=== PATIENT | male | born 1945 | race Caucasian/White ===

== ENCOUNTER → 2021-12-19 09:24 | Outpatient (BNVA) | payer MEDICARE, SELFPAY | PROVIDERS: PCP Internal Medicine; Visit Provider Surgery Vascular Surgery | DX: I83.12 Varicose veins of left lower extremity with inflammation (principal) | CPT/HCPCS: 99202 ==

== ENCOUNTER 2022-02-19 07:45 | Outpatient (REF) | payer MEDICARE, SELFPAY ==
--- NOTE | ~2022-02-19 | US_ITS ---
EXAMINATION: US LOWER EXTREMITY VENOUS (REFLUX EXAM), BILATERAL CLINICAL INDICATION: This is a 76-year-old male with venous insufficiency and varicose veins. COMPARISON: None. TECHNIQUE: Color flow triplex imaging and compression Doppler was performed to evaluate both the deep and the superficial systems bilaterally. To evaluate the superficial system, the examination was performed in the upright position. Color-flow Doppler ultrasound and compression ultrasound were utilized. In addition, maneuvers were utilized to demonstrate reflux. FINDINGS: 1. DEEP VENOUS ULTRASOUND OF THE RIGHT LOWER EXTREMITY: Common Femoral Vein: Compressible, normal respiratory variation and augmented flow. Femoral vein: Compressible, normal color flow and augmentation. Popliteal Vein: Compressible, normal augmentation. Deep Reflux: There is no evidence of reflux in the deep system in either the common femoral vein or the popliteal vein. There is no evidence of a Shahid's cyst. 2. SUPERFICIAL ULTRASOUND WITH DOPPLER OF RIGHT LOWER EXTREMITY: GREAT SAPHENOUS VEIN: Saphenofemoral Junction: 1.0 cm. The reflux time is 2432 ms. Mid Thigh: 0.5 cm. The reflux time is 3520 ms. Above Knee: 0.5 cm. The reflux time is 3484 ms. Below Knee: 0.2 cm. There is no reflux. Mid Calf: 0.3 cm. There is no reflux. Ankle: 0.3 cm. There is no reflux. GSV REFLUX: There is reflux in the great saphenous vein beginning at the saphenofemoral junction and extending down to the knee. DUPLICATED GREAT SAPHENOUS VEIN: None SMALL SAPHENOUS VEIN: Proximal: 0.2 cm Distal: 0.2 cm SSV REFLUX: No evidence of reflux. VEIN OF GIACOMINI: None Imaged. PERFORATORS: There is a 0.2 cm mid calf clinical trial associate without reflux. VARICOSITIES: There are 0.5 cm varicose veins at the saphenofemoral junction without reflux. There are 0.4 cm varicose veins at the knee with greater than 3 seconds of reflux. 3. DEEP VENOUS ULTRASOUND OF THE LEFT LOWER EXTREMITY: Common Femoral Vein: Compressible, normal respiratory variation and augmented flow. Femoral Vein: Compressible, normal color flow and augmentation. Popliteal Vein: Compressible, normal augmentation. Deep Reflux: There is no evidence of reflux in the deep system in either the common femoral vein or the popliteal vein. There is a 2.3 x 0.9 x 1.2 cm complex cyst in the posterior calf. Clinical correlation is recommended. 4. SUPERFICIAL ULTRASOUND WITH DOPPLER OF LEFT LOWER EXTREMITY: GREAT SAPHENOUS VEIN: Saphenofemoral Junction: 1.1 cm. There is no reflux. Mid Thigh: 0.3 cm. The reflux time is 752 ms. Above Knee: 0.4 cm. There is no reflux. Below Knee: 0.4 cm. There is no reflux. Mid Calf: 0.2 cm. There is no reflux. Ankle: 0.3 cm. There is no reflux. GSV REFLUX: There is isolated reflux as noted. DUPLICATED GREAT SAPHENOUS VEIN: There is a 0.6 cm duplicated lateral great saphenous vein without reflux. SMALL SAPHENOUS VEIN: Proximal: 0.2 cm Distal: 0.2 cm SSV REFLUX: No evidence of reflux. VEIN OF GIACOMINI: None Imaged. PERFORATORS: There are 0.3 cm proximal calf perforators without reflux. VARICOSITIES: There are 0.5 cm proximal calf varicose veins without reflux. US/US venous duplex LE BI IMPRESSION: 1. There is a patent right great saphenous vein with reflux beginning at the saphenofemoral junction and extending down to the knee. 2. There is a patent right small saphenous vein without reflux. 3. There are varicose veins at the knee with greater than 3 seconds of reflux. 4. There is a patent left great saphenous vein without reflux at the junction. 5. There is a patent left small saphenous vein without reflux. 6. There is a left posterior calf complex cyst. Clinical correlation is recommended.
== END 2022-02-19 07:46 | disposition home or self-care (01) ==
LOC: HO.US 07:45
PROVIDERS: Visit Provider Surgery Vascular Surgery
DX: I83.12 Varicose veins of left lower extremity with inflammation (principal)
CPT/HCPCS: 93970

== ENCOUNTER → 2022-02-22 09:50 | Outpatient (BNVA) | payer MEDICARE, SELFPAY | PROVIDERS: PCP Internal Medicine; Visit Provider Surgery Vascular Surgery | DX: I83.11 Varicose veins of right lower extremity with inflammation (principal) | CPT/HCPCS: 99212 ==

== ENCOUNTER → 2022-04-27 08:27 | Outpatient (BNVA) | payer MEDICARE, SELFPAY | PROVIDERS: PCP Internal Medicine; Visit Provider Surgery Vascular Surgery | DX: I83.11 Varicose veins of right lower extremity with inflammation (principal) | CPT/HCPCS: 36482 ==

== ENCOUNTER 2022-05-01 10:42 | Outpatient (REF) | payer MEDICARE, SELFPAY ==
--- NOTE | ~2022-05-01 | US_ITS ---
EXAMINATION: US VENOUS ULTRASOUND WITH DOPPLER LOWER EXTREMITY, RIGHT CLINICAL INFORMATION: Right lower extremity pain. Status post right lower extremity greater saphenous vein closure using Venaseal. COMPARISON: None TECHNIQUE: Ultrasound of the deep veins is performed from the hip to the calf with compression sonography and color and pulse Doppler assessment. Spectral analysis with color-flow imaging is performed. FINDINGS: Findings demonstrate occlusion of the right greater saphenous vein. There is no evidence of extension of thrombus into the saphenofemoral junctions/common femoral vein. There is normal venous compression and respiratory variation and augmented flow. The visualized common femoral vein, superficial femoral vein, profunda femoral vein, popliteal vein, and the trifurcation region shows no evidence of deep venous thrombosis. There is no significant popliteal fossa cyst. US/US venous duplex LE RT IMPRESSION: No DVT demonstrated in the right lower extremity. Occlusion of the right greater saphenous vein, consistent with reported history of ablation. No evidence of extension of thrombus into the saphenofemoral junctions/common femoral vein.
== END 2022-05-01 10:43 | disposition home or self-care (01) ==
LOC: HO.US 10:42
PROVIDERS: Visit Provider Surgery Vascular Surgery
DX: M79.604 Pain in right leg (principal)
CPT/HCPCS: 93971

== ENCOUNTER → 2022-05-10 08:42 | Outpatient (BNVA) | payer MEDICARE, SELFPAY | PROVIDERS: PCP Internal Medicine; Visit Provider Surgery Vascular Surgery | DX: I83.11 Varicose veins of right lower extremity with inflammation (principal); R22.42 Localized swelling, mass and lump, left lower limb | CPT/HCPCS: 99212 ==

== ENCOUNTER → 2022-06-01 10:26 | Outpatient (BNVA) | payer MEDICARE, SELFPAY | PROVIDERS: PCP Internal Medicine; Visit Provider Surgery Vascular Surgery | DX: R22.42 Localized swelling, mass and lump, left lower limb (principal) | CPT/HCPCS: 27619 ==

== ENCOUNTER → 2022-06-11 10:28 | Outpatient (BNVA) | payer MEDICARE, SELFPAY | PROVIDERS: PCP Internal Medicine; Visit Provider Surgery Vascular Surgery | DX: R22.42 Localized swelling, mass and lump, left lower limb (principal) | CPT/HCPCS: 99212 ==

== ENCOUNTER → 2022-12-25 08:55 | Outpatient (BNVA) | payer MEDICARE, SELFPAY | PROVIDERS: PCP Internal Medicine; Visit Provider Surgery Vascular Surgery | DX: R22.42 Localized swelling, mass and lump, left lower limb (principal); I73.9 Peripheral vascular disease, unspecified | CPT/HCPCS: 99212 ==

== ENCOUNTER 2023-01-09 12:34 | Outpatient (REF) | payer MEDICARE, SELFPAY ==
--- NOTE | ~2023-01-09 | US_ITS ---
EXAMINATION: Noninvasive assessment of the bilateral lower extremities with ARTERIAL DUPLEX and ANKLE BRACHIAL INDICES (ABIs). ULTRASOUND AORTA CLINICAL INFORMATION: Peripheral vascular disease TECHNIQUE: Duplex Doppler techniques with waveform analysis and measurement of velocities in the bilateral common femoral, profunda femoris, superficial femoral, popliteal and tibial arteries were performed. Additionally, ankle pulse volume recordings, ankle pressure measurements and ankle brachial indices were obtained of the lower extremity arterial system bilaterally. The study was performed only at rest. Additional duplex Doppler with waveform analysis and velocities performed of the abdominal aorta and bilateral iliac arteries COMPARISON: None FINDINGS: DIRECT DUPLEX DOPPLER FINDINGS: RIGHT LEG: Common femoral artery: 61 cm/s, phasicity: Monophasic. Extensive heavily calcified plaque is seen with visual moderate to severe stenosis Profunda femoris artery: 86 cm/s, phasicity: Monophasic Superficial femoral artery (proximal): 59 cm/s, phasicity: Monophasic Superficial femoral artery (mid): 43 cm/s, phasicity: Monophasic. Calcified plaque Superficial femoral artery (distal): 49 cm/s, phasicity: Monophasic Popliteal artery: 39 cm/s, phasicity: Monophasic Posterior tibial artery: 39 cm/s, phasicity: Monophasic Peroneal artery: 28 cm/s, phasicity: Monophasic LEFT LEG: Common femoral artery: 314 cm/s, phasicity: Biphasic. Extensive heavily calcified plaque with severe stenosis Profunda femoris artery: 44 cm/s, phasicity: Biphasic Superficial femoral artery (proximal): 83 cm/s, phasicity: Biphasic Superficial femoral artery (mid): 89 cm/s, phasicity: Biphasic Superficial femoral artery (distal): 74 cm/s, phasicity: Biphasic Popliteal artery: 82 cm/s, phasicity: Biphasic Posterior tibial artery: 70 cm/s, phasicity: Biphasic Peroneal artery: 53 cm/s, phasicity: Biphasic AORTA: Diffuse calcified plaque. Maximum peak systolic velocity in the distal abdominal aorta measures 375 cm/s, biphasic. Patent tortuous bilateral common iliac arteries. Maximum peak systolic velocity in the right common iliac artery measures 95 cm/s, monophasic consistent with moderate stenosis. Maximum peak systolic velocity in the left common iliac artery measures 215 cm/s, biphasic consistent with moderate stenosis ANKLE-BRACHIAL INDEX: Right: 0.65? Left: 0.98 ANKLE PRESSURES: Right: PT 75, DP 86 Left: PT?130, DP?126 ANKLE PVR WAVEFORMS: Right: Abnormal Left: Abnormal US/US arterial duplex LE BI IMPRESSION: Right leg: Moderately decreased ankle brachial index. Heavily calcified plaque is seen in the right common femoral artery with the visual appearance of moderate to severe stenosis. Monophasic flow seen throughout the right common iliac artery with elevated velocity consistent with a moderate stenosis. Left leg: Normal ankle brachial index. Heavily calcified plaque is seen in the left common femoral artery with elevated velocity and visual appearance of severe stenosis. Patent biphasic flow throughout the remaining left lower extremity. Elevated velocity also seen in the left common iliac artery consistent with moderate stenosis. Aorta: Elevated velocity in the distal abdominal aorta consistent with a moderate stenosis. ALEXEY Reference: - >1.4 = calcified vessels - 0.9 - 1.4 = normal - no significant arterial disease - 0.7 - 0.89 = mild peripheral arterial disease - 0.51 - 0.69 = moderate peripheral arterial disease - ? 0.50 = severe peripheral arterial disease - < .30 = critical arterial disease
== END 2023-01-09 12:35 | disposition home or self-care (01) ==
LOC: HO.US 12:34
PROVIDERS: PCP Internal Medicine; Visit Provider Surgery Vascular Surgery
DX: I73.9 Peripheral vascular disease, unspecified (principal)
CPT/HCPCS: 93923; 93925

== ENCOUNTER 2023-01-29 08:45 | Outpatient (AMB) | payer MEDICARE, SELFPAY ==
[2023-01-29 09:04] VITALS: BMI 33.8
--- NOTE | 2023-01-29 09:04 | MHC.OFFVIS ---
Intake Vital Signs 01/29/23 09:04 Height 5 ft 7.5 in Weight 219 lb BMI 33.8 Intake Visit Reasons: Arterial US follow up 01/09/23 Intake Note: follow up Arterial US 01/09/23 w/ Left calf mass in the muscle that has grown a bit since removed and is sensitive to the touch and right LE cramping w/ 10 mins of ambulation. Pt states he was able to bike 12 miles without cramping. Accompanied by: Self / Same As Patient Allergies CHRIS Inhibitors Adverse Reaction (Unknown, Verified 01/29/23 09:09) Unknown Penicillins Adverse Reaction (Unknown, Verified 01/29/23 09:09) Unknown Sulfa (Sulfonamide Antibiotics) Adverse Reaction (Unknown, Verified 01/29/23 09:09) Unknown HPI Arterial US follow up 01/09/23 HPI Details Very pleasant 77-year-old gentleman presents for follow-up regarding peripheral vascular disease. In addition he does have this left posterior calf mass that has reoccurred. At the current time he is asymptomatic from both. Of in terms of the mass it occasionally sensitive but at the current time causing him no problems. In terms of his claudication he can actually walk a quarter of a mi with no problem. He has been able to ride his bike several miles with no significant difficulty. He enjoyed his last vacation at [facility] a few weeks ago and was able to bike with no difficulty. He now presents for follow-up. [facility] Medical History Atherosclerosis of aorta CAD (coronary artery disease) Chronic kidney disease, stage 3 unspecified HTN (hypertension) Myocardial infarction Peripheral vascular disease, unspecified Strain of other muscle(s) and tendon(s) of posterior muscle group at lower leg level, left leg, initial encounter Surgical History Status post ablation of incompetent vein using laser (04/27/22) Social History Alcohol intake: never Patient Tobacco Use Status: Former Tobacco user Tobacco use type: Cigarette Review of Systems Const All systems reviewed & are unremarkable except as noted in HPI and below Reports no additional complaints ENT Reports Normal hearing present Card Denies chest pain, Denies chest pain at rest, Denies chest pain with activity and Denies pedal edema Resp Denies cough GI Denies abdominal pain Musc Denies abnormal gait, Denies muscle cramps and Denies radiating pain into limb Skin/Breast Denies skin ulcer and Denies wounds Neuro Reports Normal hearing present and Denies abnormal gait Psych Reports no additional complaints Physical Exam Vital Signs: BMI result Body Mass Index 33.8 Const General: cooperative, healthy appearing and comfortable Orientation/consciousness: oriented to person, oriented to place and oriented to time HEENT Head: Yes normal to inspection Neck Neck: Yes normal visual inspection Carotids: no bruits Chest Chest palpation & inspection: normal inspection of the chest Resp Effort & Inspection: normal respiratory effort and able to speak in complete sentences Auscultation: clear to auscultation bilaterally, no crackles, no rales, no rhonchi and no wheezes Cardio Other: Bilateral DP signal Rate: regular rate Rhythm: regular rhythm Heart sounds: S1 normal heart sound present and S2 normal heart sound present Bruits: no carotid bruits Peripheral pulses: Peripheral pulses 2+ throughout GI Inspection: Yes normal to inspection Skin Wounds: no wounds Hair: normal Neuro General: oriented to person, oriented to place and oriented to time Cranial nerves: Yes CN's II-XII intact bilaterally and Yes Normal hearing present Cognition (Neuro): normal cognition Motor exam (neuro): 5/5 motor strength present throughout Extrem Other: venous exam: No significant superficial varicosities or spider telangiectasias, minimal edema General: No clubbing, No cyanosis and No edema Psych Appearance: grossly normal Mental Status: mental status grossly normal Speech and movement: Normal speech and movement present Results Reviewed Results Reviewed: Noninvasive arterial testing dated 01/09/2023 demonstrates ALEXEY on the right of 0.65 and on the left of 0.98. Written report and images were reviewed. Assessment & Plan Assessment & Plan (1) PAD (peripheral artery disease): Code(s): I73.9 - Peripheral vascular disease, unspecified Plan: In short patient has stable claudication. I did review the pathophysiology of peripheral vascular disease with the patient. In addition we did discuss routine conservative measures including a healthy diet and the importance of exercise and ambulation. We did discuss risk factor modification. The patient will continue to to follow-up with surveillance follow-up in approximately 1 year. Thank you for allowing us to participate in this patient's care. If there are any questions or concerns please do not hesitate to contact us. Orders: Orders US arterial duplex LE BI 364 Days I73.9 - Peripheral vascular disease, unspecified Coding Level of Care Code Est Pt Level 4 (08761) Diagnoses PAD (peripheral artery disease) I73.9
== END 2023-01-29 09:24 | disposition home or self-care (01) ==
LOC: HO.HVS 08:45
PROVIDERS: PCP Internal Medicine; Visit Provider Surgery Vascular Surgery
DX: I73.9 Peripheral vascular disease, unspecified (principal)
CPT/HCPCS: 99213

== ENCOUNTER → 2023-01-29 08:45 | Outpatient (BNVA) | payer MEDICARE, SELFPAY | PROVIDERS: PCP Internal Medicine; Visit Provider Surgery Vascular Surgery | DX: I73.9 Peripheral vascular disease, unspecified (principal) | CPT/HCPCS: 99212 ==

== ENCOUNTER 2024-01-21 08:28 | Outpatient (REF) | payer MEDICARE, SELFPAY ==
--- NOTE | ~2024-01-21 | US_ITS ---
EXAMINATION: US RETROPERITONEAL LIMITED (AORTA) NONINVASIVE ASSESSMENT OF THE ARTERIES OF BOTH LOWER EXTREMITIES INCLUDING PVR EXAM AND BILATERAL LOWER EXTREMITY DUPLEX CLINICAL INFORMATION: PVD. COMPARISON: Noninvasive vascular studies 01/09/2023 TECHNIQUE: Styles-scale, color Doppler and spectral Doppler evaluation of the abdominal aorta. Ankle pulse volume recordings, ankle pressure measurements and ankle brachial indices were obtained of the lower extremity arterial system bilaterally in addition to duplex Doppler techniques with wave form analysis and measurement of velocities in the common femoral, profunda femoral, superficial femoral, popliteal, tibial and peroneal arteries. The study was performed only at rest. FINDINGS: Atherosclerotic plaque in the abdominal aorta. The measurements of the aorta in maximum AP and transverse dimensions respectively are as follows: Proximal: 3.3 cm. Mid: 2.5 cm. Distal: 2.0 cm. PSV: 105 cm/s. The measurements of the common iliac arteries in maximum AP and TRV dimensions are as follows: Right Common Iliac Artery: 1.4 cm. Left Common Iliac Artery: 1.3 cm. RIGHT LEG 1. Right Ankle-Brachial Index: 0.62 (higher of the DP/PT) >0.97-1.25 = normal - no significant arterial disease 0.75-0.96 = mild peripheral arterial disease 0.5-0.74 = moderate peripheral arterial disease <0.50 = severe peripheral arterial disease <0.30 = critical arterial disease 2. Segmental Pressures (mmHg): Brachial: 128 Ankle: PT 90, DP 83 3. PVR Waveforms: Ankle: Biphasic 4. Direct Duplex: Common femoral artery: 75 cm/s, monophasic Profunda femoris artery: 72 cm/s, monophasic Superficial femoral artery (proximal): 27 cm/s, biphasic Superficial femoral artery (mid): 40 cm/s, monophasic Superficial femoral artery (distal): 32 cm/s, monophasic Popliteal artery: 20 cm/s, monophasic Mid posterior tibial artery: 17 cm/s, monophasic LEFT LE. Left Ankle-Brachial Index: 0.94 (higher of the DP/PT) >0.97-1.25 = normal - no significant arterial disease 0.75-0.96 = mild peripheral arterial disease 0.5-0.74 = moderate peripheral arterial disease <0.50 = severe peripheral arterial disease <0.30 = critical arterial disease 2. Segmental Pressures: Brachial: 146 Ankle: PT 137, DP 120 3. PVR Waveforms: Ankle: Biphasic 4. Direct Duplex: Common femoral artery: 219 cm/s, biphasic Profunda femoris artery: 32 cm/s, biphasic Superficial femoral artery (proximal): 50 cm/s, biphasic Superficial femoral artery (mid): 43 cm/s, biphasic Superficial femoral artery (distal): 43 cm/s, biphasic Popliteal artery: 35 cm/s, biphasic Mid posterior tibial artery: 37 cm/s, biphasic US/US arterial duplex BI w/ ALEXEY IMPRESSION: 1. Left ankle-brachial index of 0.94 consistent with mild peripheral arterial disease. Previously 0.95. 2. Elevated velocity in the left common femoral artery consistent with a moderate stenosis. 3. Right ankle-brachial index of 0.62 consistent with moderate peripheral arterial disease. Previously 0.65. 4. Decreased velocities throughout the left lower extremity arterial system consistent with inflow disease.
== END 2024-01-21 08:29 | disposition home or self-care (01) ==
LOC: HO.US 08:28
PROVIDERS: PCP Internal Medicine; Visit Provider Surgery Vascular Surgery
DX: I73.9 Peripheral vascular disease, unspecified (principal)
CPT/HCPCS: 76706; 93922; 93925

== ENCOUNTER 2024-02-27 10:07 | Outpatient (AMB) | payer MEDICARE, SELFPAY ==
--- NOTE | 2024-02-27 10:08 | MHC.OFFVIS ---
Intake Visit Reasons: 1yr follow up s/p ART US 01/21/24 Intake Note: Patient presents for follow up 01/21/24 arterial US. Patient has no complaints. Accompanied by: Self / Same As Patient Allergies CHRIS Inhibitors Adverse Reaction (Unknown, Verified 02/27/24 10:10) Unknown Penicillins Adverse Reaction (Unknown, Verified 02/27/24 10:10) Unknown Sulfa (Sulfonamide Antibiotics) Adverse Reaction (Unknown, Verified 02/27/24 10:10) Unknown HPI HPI 1yr follow up s/p ART 01/21/24: Details: Very pleasant 78-year-old gentleman presents for annual surveillance regarding peripheral vascular disease. He had a previous left posterior calf mass which appears to have resolved and is not causing any problems. Can walk about a mi with no difficulty. He also is an avid bike rider. He typically goes to [facility] for about a month in March in a camper. And continues to remain quite active. He now presents for routine arterial surveillance. [facility] Medical History Chronic kidney disease, stage 3 unspecified Atherosclerosis of aorta Peripheral vascular disease, unspecified Strain of other muscle(s) and tendon(s) of posterior muscle group at lower leg level, left leg, initial encounter Myocardial infarction HTN (hypertension) CAD (coronary artery disease) Surgical History Status post ablation of incompetent vein using laser (04/27/22) Social History Alcohol intake: never Patient Tobacco Use Status: Former Tobacco user Tobacco use type: Cigarette Review of Systems Const All systems reviewed & are unremarkable except as noted in HPI and below Reports no additional complaints ENT Reports Normal hearing present Card Denies chest pain, Denies chest pain at rest, Denies chest pain with activity and Denies pedal edema Resp Denies cough GI Denies abdominal pain Musc Denies abnormal gait, Denies muscle cramps and Denies radiating pain into limb Skin/Breast Denies skin ulcer and Denies wounds Neuro Reports Normal hearing present and Denies abnormal gait Psych Reports no additional complaints Physical Exam Const General: cooperative, healthy appearing and comfortable Orientation/consciousness: oriented to person, oriented to place and oriented to time HEENT Head: Yes normal to inspection Neck Neck: Yes normal visual inspection Carotids: no bruits Chest Chest palpation & inspection: normal inspection of the chest Resp Effort & Inspection: normal respiratory effort and able to speak in complete sentences Auscultation: clear to auscultation bilaterally, no crackles, no rales, no rhonchi and no wheezes Cardio Other: Bilateral DP signals Rate: regular rate Rhythm: regular rhythm Heart sounds: S1 normal heart sound present and S2 normal heart sound present Bruits: no carotid bruits GI Inspection: Yes normal to inspection Skin Wounds: no wounds Hair: normal Neuro General: oriented to person, oriented to place and oriented to time Cranial nerves: Yes CN's II-XII intact bilaterally and Yes Normal hearing present Cognition (Neuro): normal cognition Motor exam (neuro): 5/5 motor strength present throughout Extrem Other: venous exam: No significant superficial varicosities or spider telangiectasias, minimal edema General: No clubbing, No cyanosis and No edema Psych Appearance: grossly normal Mental Status: mental status grossly normal Speech and movement: Normal speech and movement present Results Reviewed Results Reviewed: Noninvasive testing dated 01/21/2024 demonstrates ALEXEY on the right of 0.62 and on the left of 0.94. Assessment & Plan Assessment & Plan (1) PAD (peripheral artery disease): Code(s): I73.9 - Peripheral vascular disease, unspecified Category: Medical Plan: In short patient has stable claudication. I did review the pathophysiology of peripheral vascular disease with the patient. In addition we did discuss routine conservative measures including a healthy diet and the importance of exercise and ambulation. We did discuss risk factor modification. The patient will continue to to follow-up with surveillance follow-up in approximately 1 year. Thank you for allowing us to participate in this patient's care. If there are any questions or concerns please do not hesitate to contact us. Orders: Orders US arterial duplex LE BI 1 Year I73.9 - Peripheral vascular disease, unspecified Coding Level of Care Code Est Pt Level 4 (16015) Diagnoses PAD (peripheral artery disease) I73.9
== END 2024-02-27 10:39 | disposition home or self-care (01) ==
PROVIDERS: PCP Internal Medicine; Visit Provider Surgery Vascular Surgery
DX: I73.9 Peripheral vascular disease, unspecified (principal)
CPT/HCPCS: 99214

== ENCOUNTER → 2024-02-27 10:07 | Outpatient (BNVA) | payer MEDICARE, SELFPAY | PROVIDERS: PCP Internal Medicine; Visit Provider Surgery Vascular Surgery | DX: I73.9 Peripheral vascular disease, unspecified (principal) | CPT/HCPCS: 99212 ==

== ENCOUNTER 2025-02-16 09:24 | Outpatient (REF) | payer MEDICARE, SELFPAY ==
--- NOTE | ~2025-02-16 | US_ITS ---
EXAMINATION: Noninvasive assessment of the bilateral lower extremities with ARTERIAL DUPLEX, ANKLE BRACHIAL INDICES (ABIs), and PULSE VOLUME RECORDINGS (PVRs). CLINICAL INFORMATION: Smoking. Peripheral vascular disease. TECHNIQUE: Duplex Doppler techniques with waveform analysis and measurement of velocities in the bilateral common femoral, profunda femoris, superficial femoral, popliteal and tibial arteries were performed. Additionally, ankle pulse volume recordings, ankle pressure measurements and ankle brachial indices were obtained of the lower extremity arterial system bilaterally. The study was performed only at rest. COMPARISON: January 21, 2024. FINDINGS: Irregularly-shaped mixed plaques throughout the interrogated arteries, pronounced in the common femoral arteries. DIRECT DUPLEX DOPPLER FINDINGS: RIGHT LEG: Common femoral artery: 57 cm/s, phasicity: Monophasic. Profunda femoris artery: 116 cm/s, phasicity: Monophasic. Superficial femoral artery (proximal): 41 cm/s, phasicity: Monophasic. Superficial femoral artery (mid): 52 cm/s, phasicity: Monophasic. Superficial femoral artery (distal): 22 cm/s, phasicity: Monophasic. Popliteal artery: 25 cm/s, phasicity: Biphasic. Posterior tibial artery: 23 cm/s, phasicity: Monophasic. Peroneal artery: 16 cm/s, phasicity: Monophasic. Anterior tibial artery: 17 cm/s, phasicity: Biphasic. Dorsalis pedis artery: 5 cm/s, phasicity:Monophasic. LEFT LEG: Common femoral artery: 226 cm/s, phasicity: Biphasic. Spectral broadening. Profunda femoris artery: 42 cm/s, phasicity: Monophasic. Superficial femoral artery (proximal): 82 cm/s, phasicity: Biphasic. Superficial femoral artery (mid): 47 cm/s, phasicity: Biphasic. Superficial femoral artery (distal): 46 cm/s, phasicity: Biphasic. Popliteal artery: 66 cm/s, phasicity: Biphasic. Posterior tibial artery: 39 cm/s, phasicity: Biphasic. Peroneal artery: 28 cm/s, phasicity: Biphasic Anterior tibial artery: 29 cm/s, phasicity: Biphasic. Dorsalis pedis artery: 63 cm/s, phasicity: Biphasic BRACHIAL PRESSURES: Right: 154 Left: 171 ANKLE PRESSURES: Right: PT 114, DP 91 Left: PT 133, DP 123 ANKLE-BRACHIAL INDEX: Right: 0.67 Left: 0.78 ANKLE PVR WAVEFORMS: Right: Abnormal Left: Abnormal US/US arterial duplex BI w/ ALEXEY IMPRESSION: Right leg: Severe inflow disease throughout the interrogated vessels. Left leg: Moderate to severe inflow disease throughout the interrogated vessels. ALEXEY Reference: - >1.4 = calcified vessels - 0.9 - 1.4 = normal - no significant arterial disease - 0.7 - 0.89 = mild peripheral arterial disease - 0.51 - 0.69 = moderate peripheral arterial disease - 0.50 = severe peripheral arterial disease - < .30 = critical arterial disease Electronically signed by: Abdelrahman Falcon MD 02/16/2025 10:45 AM EDT
--- OUTSIDE RECORDS SUMMARY | 2025-02-16 09:51 | XMS_ITS | Clinical Summary ---
Author Organization [address] [place] [address] [place] [phone] Phone Care Team Providers Care Director Of Communications Name Role Phone Shekhar Rice MD Primary Care Provider [phone] Allergies Active Allergy Reactions Criticality Noted Date Comments Penicillins 02/20/2023 Other Reaction(s): Hives/Urticaria Sulfa (Sulfonamide Antibiotics) 02/20/2023 Other Reaction(s): Hives/Urticaria Medications ASCORBIC ACID, VITAMIN C, ORAL Take 1 Tablet by mouth daily. Zinc Active aspirin 81 mg EC tablet Take 1 tablet (81 mg total) by mouth 1 (one) time each day. Active metoprolol succinate (TOPROL-XL) 25 mg 24 hr tablet Take 1 tablet (25 mg total) by mouth 1 (one) time each day. Active chlorthalidone (HYGROTON) 25 mg tablet Take 1 tablet (25 mg total) by mouth 1 (one) time each day. Active amLODIPine (NORVASC) 5 mg tablet Take 1 tablet (5 mg total) by mouth 1 (one) time each day. Active omeprazole (PriLOSEC) [address] capsule Take 1 capsule (20 mg total) by mouth 1 (one) time each day. Active Active Problems Problem Noted Date Diagnosed Date Hyperlipidemia 02/20/2023 Overview (07/06/2024): Last Assessment & Plan: Patient has hyperlipidemia states he has had side effects on 3 different statins. We did start him on Zetia 10 mg a day has been given a lab slip to check his cholesterol in a month dietary restrictions have also been discussed Arteriosclerosis of aorta ([facility] V24) 02/19/20 23 COLD (chronic obstructive amisha ng disease) (CMS/HCC V24, CMS/[facility] V28) 02/18/2023 Heart murmur 02/18/2023 Overview (07/06/2024): Last Assessment & Plan: Patient with aortic insufficiency. Will plan on repeating echocardiogram in 1 year to assess for any evidence of heart failure. Patient has been told that the symptoms that could develop from this are progressive dyspnea or edema Insufficiency, arterial, peripheral ([facility] V24 ) 02/18/2023 Overview (07/06/2024): Last Assessment & Plan: Patient has had some claudication symptoms mainly of the right leg has been followed by vascular surgery is also had venous insufficiency surgery which I suspect is a vein stripping on the right side his main claudication is on the right. Left upper quadrant abdominal swelling, mass and lump 02/18/2023 Old [place] (myocardial infarction) 02/18/2023 Overview (07/06/2024): Last Assessment & Plan: Remote history of episodic coronary disease status post angioplasty right coronary artery over 20 years ago with no recurrent anginal symptoms. Large infarct identified on perfusion studies. Encounters Date Type Department Care Team Description 12/11/2024 Telephone [facility] - [facility] [address] [place] [address] Mark Anthony Aguilera MD from Last 3 Months Medical History Medical History Date Comments Chronic kidney disease, stag e 3 ([facility] V24, [facility] V28) DX:Chronic kidney disease, s tage 3 ([facility]) Muscle strain of left lower leg DX:Muscle strain of left lower leg Social History Tobacco Use Types Packs/Day Years Used Date Smoking Tobacco: Former Cigarettes Q uit: 07/22/2011 Smokeless Tobacco: Never Alcohol Use Standard Drinks/Week Comments Not Currently 0 (1 standard drink = 0.6 oz pur e alcohol) Sex and Gender Information Value Date Recorded Sex Assigned at Not on file Legal Sex Male 9:09 PM EST Gender Identity Not on file Sexual Orientation Not on file Obstetrics History Last Filed Vital Signs Vital Sign Reading Time Taken Comments Blood Pressure 128/58 11/27/2023 11:04 AM EDT Sitting R Arm Pulse 67 11/27/2023 11:04 AM EDT Temperature - - Respiratory Rate - - Oxygen Saturation - - Inhaled Oxygen Concentration - - Weight 98.2 kg (216 lb 9.6 oz) 11/27/2023 11:04 AM EDT Height 174 cm (5' 8.5 ) 11/27/2023 11:0 4 AM EDT Body Mass Index 32.45 11/27/2023 11:04 AM EDT Plan of Treatment Upcoming Encounters Date Type Department Care Team (Late st Contact Info) Description 03/02/2025 8:00 AM EDT Ancillary Procedure [facility] - [address] [place] [address] Health Maintenance Due Date Last Done Comments COVID-19 Vaccine (#1) 1950 DTaP,Tdap,and Td Vaccines (1 - Tdap) 10/15/1963 Pneumococcal Vaccine: 50+ Ye ars (1 of 2 - PCV) 10/15/1963 Zoster Vaccines (1 of 2) 10/15/1963 RSV Immunization Adult Patie nts (1 - 1-dose 75+ series) 10/15/2019 Cholesterol Screening (Lipid Panel) 08/16/2023 Falls Risk Assessment 08/16/2023 Medicare Annual Wellness Visit 08/16/2023 Social Influencers of Health Screening 08/16/2023 Depression Screening 07/22/2024 Influenza Vaccine (#1) 2025 HIB Vaccines Aged Out No longer eligi ble based on patient's age to complete this topic HPV Vaccines Aged Out No longer eligi ble based on patient's age to complete this topic Hepatitis A Vaccines Aged Out No long er eligible based on patient's age to complete this topic Hepatitis B Vaccines Aged Out No long er eligible based on patient's age to complete this topic IPV Vaccines Aged Out No longer eligi ble based on patient's age to complete this topic MMR Vaccines Aged Out No longer eligi ble based on patient's age to complete this topic Meningococcal ACWY Vaccine Aged Out N o longer eligible based on patient's age to complete this topic Meningococcal B Vaccine Aged Out No l onger eligible based on patient's age to complete this topic RSV Immunization Patients Un delores 20 months Aged Out No longer eligible b ased on patient's age to complete this topic Varicella Vaccines Aged Out No longer eligible based on patient's age to complete this topic [place] [id number] [employer] Care Teams Director Of Communications Relationship Specialty Start Date End Date Shekhar Rice MD [address] [facility] [address] [place] PCP - General 12/11/22
== END 2025-02-16 09:25 | disposition home or self-care (01) ==
LOC: HO.US 09:24
PROVIDERS: PCP Internal Medicine; Visit Provider Surgery Vascular Surgery
DX: I73.9 Peripheral vascular disease, unspecified (principal); Z87.891 Personal history of nicotine dependence
CPT/HCPCS: 93922; 93925

== ENCOUNTER → 2025-02-16 09:26 | Outpatient (BNV) | payer MEDICARE, SELFPAY | PROVIDERS: PCP Internal Medicine; Visit Provider Radiology Diagnostic Radiology | DX: I73.9 Peripheral vascular disease, unspecified (principal) | CPT/HCPCS: 93922; 93925 ==

== ENCOUNTER 2025-04-01 09:40 | Outpatient (AMB) | payer MEDICARE, SELFPAY ==
--- NOTE | 2025-04-01 09:46 | MHC.OFFVIS ---
Intake Visit Reasons: 1 yr follow up Arterial US 02/16/25 Intake Note: Patient presents for 1 year follow up arterial US . No complaints. Accompanied by: Self / Same As Patient Allergies CHRIS Inhibitors Adverse Reaction (Unknown, Verified 04/01/25 09:48) Unknown Penicillins Adverse Reaction (Unknown, Verified 04/01/25 09:48) Unknown Sulfa (Sulfonamide Antibiotics) Adverse Reaction (Unknown, Verified 04/01/25 09:48) Unknown HPI HPI 1 yr follow up Arterial US 02/16/25: Details: The patient is an 79-year-old male presenting with an annual arterial surveillance follow-up. He has a history of peripheral arterial disease with satisfactory arterial circulation measurements of .67 on the right and .78 on the left. He reports being able to walk long distances without difficulty, including a recent seven-mile walk during a trip to [place]. The patient has a history of hyperlipidemia but is not on statins due to muscle aches experienced previously. He manages his cholesterol through dietary changes, and his levels are borderline. Of note he is being maintained on a baby aspirin and now presents for vascular follow-up. ON LICENSE OF [facility] Medical History Chronic kidney disease, stage 3 unspecified Atherosclerosis of aorta Peripheral vascular disease, unspecified Strain of other muscle(s) and tendon(s) of posterior muscle group at lower leg level, left leg, initial encounter Myocardial infarction HTN (hypertension) CAD (coronary artery disease) Surgical History Status post ablation of incompetent vein using laser (04/27/22) Social History Alcohol intake: never Patient Tobacco Use Status: Former Tobacco user Tobacco use type: Cigarette Review of Systems Const All systems reviewed & are unremarkable except as noted in HPI and below Reports no additional complaints ENT Reports Normal hearing present Card Denies chest pain, Denies chest pain at rest, Denies chest pain with activity and Denies pedal edema Resp Denies cough GI Denies abdominal pain Musc Denies abnormal gait, Denies muscle cramps and Denies radiating pain into limb Skin/Breast Denies skin ulcer and Denies wounds Neuro Reports Normal hearing present and Denies abnormal gait Psych Reports no additional complaints Physical Exam Const General: cooperative, healthy appearing and comfortable Orientation/consciousness: oriented to person, oriented to place and oriented to time HEENT Head: Yes normal to inspection Neck Neck: Yes normal visual inspection Carotids: no bruits Chest Chest palpation & inspection: normal inspection of the chest Resp Effort & Inspection: normal respiratory effort and able to speak in complete sentences Auscultation: clear to auscultation bilaterally, no crackles, no rales, no rhonchi and no wheezes Cardio Other: Bilateral DP signals Rate: regular rate Rhythm: regular rhythm Heart sounds: S1 normal heart sound present and S2 normal heart sound present Bruits: no carotid bruits Peripheral pulses: Peripheral pulses 2+ throughout GI Inspection: Yes normal to inspection Skin Wounds: no wounds Hair: normal Neuro General: oriented to person, oriented to place and oriented to time Cranial nerves: Yes CN's II-XII intact bilaterally and Yes Normal hearing present Cognition (Neuro): normal cognition Motor exam (neuro): 5/5 motor strength present throughout Extrem Other: venous exam: No significant superficial varicosities or spider telangiectasias, minimal edema General: No clubbing, No cyanosis and No edema Psych Appearance: grossly normal Mental Status: mental status grossly normal Speech and movement: Normal speech and movement present Results Reviewed Results Reviewed: Noninvasive testing dated 02/16/2025 demonstrates ALEXEY on the right of 0.67 and on the left of 0.78. Written report and images were reviewed Assessment & Plan Assessment & Plan (1) PAD (peripheral artery disease): Code(s): I73.9 - Peripheral vascular disease, unspecified Category: Medical Plan: In short patient has stable claudication. I did review the pathophysiology of peripheral vascular disease with the patient. In addition we did discuss routine conservative measures including a healthy diet and the importance of exercise and ambulation. We did discuss risk factor modification. The patient will continue to to follow-up with surveillance follow-up in approximately 1 year. Thank you for allowing us to participate in this patient's care. If there are any questions or concerns please do not hesitate to contact us. Plan Patient was informed and verbally consented to the use of an ambient scribe for clinic note documentation during this visit. Coding Level of Care Code Est Pt Level 4 (60878) Complex EM visit Add On G2211 Diagnoses PAD (peripheral artery disease) I73.9
--- OUTSIDE RECORDS SUMMARY | 2025-04-01 11:21 | XMS_ITS | Clinical Summary ---
Author Organization [address] [place] [address] [place] [phone] Phone Care Team Providers Care Shrimp Cleaner Name Role Phone Shekhar Rice MD Primary Care Provider [phone] Allergies Active Allergy Reactions Criticality Noted Date [...] have also been discussed Arteriosclerosis of aorta ([facility] V24) 02/19/20 COLD (chronic obstructive amisha ng disease) ([facility] V24, [facility] V28) 02/18/2023 Heart murmur 02/18/2023 Overview (07/06/2024): Last Assessment & Plan: Patient with aortic insufficiency. Will plan on repeating echocardiogram in 1 year to assess for any evidence of heart failure. Patient has been told that the symptoms that could develop from this are progressive dyspnea or edema Insufficiency, arterial, peripheral ([facility] V24 ) 02/18/2023 Overview (07/06/2024): Last Assessment & Plan: Patient has had some claudication symptoms mainly of the right leg has been followed by vascular surgery is also had venous insufficiency surgery which I suspect is a vein stripping on the right side his main claudication is on the right. Left upper quadrant abdominal swelling, mass and lump 02/18/2023 Old [place] (myocardial infarction) 02/18/2023 Overview (07/06/2024): Last Assessment & Plan: Remote history of episodic coronary disease status post angioplasty right coronary artery over 20 years ago with no recurrent anginal symptoms. Large infarct identified on perfusion studies. Encounters Date Type Department Care Team Description 03/02/2025 8:00 AM EDT Ancillary Procedure [facility] - [address] [place] [address] Heart murmur from Last 3 Months Medical History Medical History Date Comments Chronic kidney disease, stag e 3 ([facility] V24, [facility] V28) DX:Chronic kidney disease, s tage 3 ([facility]) Muscle strain of left lower leg DX:Muscle [...] Sign Reading Time Taken Comments Blood Pressure 160/60 03/02/2025 8:13 AM EDT Pulse 67 11/27/2023 11:04 AM EDT Temperature - - Respiratory Rate - - Oxygen Saturation - - Inhaled Oxygen Concentration - - Weight 96.2 kg (212 lb) 03/02/2025 8:13 AM EDT Height 175.3 cm (5' 9 ) 03/02/2025 8:13 AM EDT Body Mass Index 31.31 03/02/2025 8:13 AM EDT Plan of Treatment Health Maintenance Due Date Last Done Comments DTaP,Tdap,and Td Vaccines (1 - Tdap) 10/15/1964 Zoster Vaccines (1 of 2) 10/15/1964 RSV Immunization Adult Patients (1 - 1-dose 75+ series) 10/15/2019 Cholesterol Screening (Lipid Panel) 08/16/2023 Falls Risk Assessment 08/16/2023 Medicare Annual Wellness Visit 08/16/2023 Social Influencers of Health Screening 08/16/2023 Depression Screening 07/22/2024 COVID-19 Vaccine ( season) 2025 05/16/2022, 05/28/2021, 12/15/2020, Additional history exists Influenza Vaccine (#1) 2025 Pneumococcal Vaccine: 50+ Years Completed 12/25/2021, 07/20/2020 HIB Vaccines Aged Out No longer eligi [...] to complete this topic RSV Immunization Patients Under 20 months Aged Out No longer eligible based on patient's age to complete this topic Varicella Vaccines Aged Out No longer eligible based on patient's age to complete this topic Procedures Procedure Name Priority Date/Time Associated Diagnosis Comments TRANSTHORACIC ECHOCARDIOGRAM (TTE) COMPLETE Routine 03/02/2025 8:13 AM EDT Heart murmur from Last 3 Months Results * (ABNORMAL) TRANSTHORACIC ECHOCARDIOGRAM (TTE) COMPLETE (03/02/2025 8:13 AM EDT) Left Atrium Minor [place] 6.0 cm CV PACS Left Atrium Major [place] 6.5 cm CV PACS LA Area Sys (A2C) 21 cm2 CV PACS LA Area Sys (A4C) 24 cm2 CV PACS LA Volume (BP) 69 mL CV PACS RA Area 19.8 cm2 CV PACS RA 2D Volume 51 mL CV PACS AV Regurgitation PHT 550 ms CV PACS AR Max Velocity 4.1 m/s CV PACS AV Peak Gradient 68 mmHg CV PACS Aortic Sinus Valsalva 4.3 cm CV PACS Ascending Aorta 4.0 cm CV PACS IVC Proximal 2.1 cm CV PACS IVC Proximal 0.4 cm CV PACS IVSD 1.1(A) 0.6 - 1.0 cm CV PACS LVIDD 5.7 4.2 - 5.8 cm CV PACS LVIDS 3.8 2.5 - 4.0 cm CV PACS LVOT Diameter 2.4 cm CV PACS LVOT Mean [place] 0.6 m/s CV PACS LVOT Mean Grad 2 mmHg CV PACS LVOT Peak VTI 19.6 cm CV PACS LVOT Peak [place] 0.9 m/s CV PACS LVOT Peak Gradient 3 mmHg CV PACS LVPWD 1.1(A) 0.6 - 1.0 cm CV PACS MV E' Tissue Velocity Lateral 13 cm/s CV PACS MV E' Tissue Velocity Septal 6 cm/s CV PACS LVOT Area 4.5 cm2 CV PACS LVOT Stroke Volume 89 mL CV PACS E Wave Deceleration Time 176 119 - 242 ms CV PACS MV Peak A [place] 1.08 m/s CV PACS MV Peak E [place] 0.89 m/s CV PACS PV Acceleration Time 102 ms CV PACS PV Acceleration Time 102 ms CV PACS RV Diastolic Basal Dimension 3.2 2.5 - 4.1 cm CV PACS RV S' 9 cm/s CV PACS TAPSE 25 mm CV PACS E/E' Ratio Septal 15 CV PACS E/E' Ratio Averaged 11 CV PACS Relative Wall Thickness ratio 0.39 CV PACS FS 33 % CV PACS LV Mass 2D 257 g CV PACS LVOT flow 271 mL/s CV PACS E/A Ratio 0.8 CV PACS E/E' Ratio Lateral 7 CV PACS BSA 2.16 m2 CV PACS LA Volume Index (BP) 33 mL/m2 CV PACS LVIDD Index 2.69 cm/m2 CV PACS LVIDS Index 1.79 cm/m2 CV PACS LV Mass Index 2D 121(A) 50 - 102 g/m2 CV PACS LVOT Stroke Index 42 mL/m2 CV PACS RA 2D Volume Index 24 18 - 32 mL/m2 CV PACS Ascending Aorta Index 1.89 cm/m2 CV PACS Anatomical Region Laterality Modality Ultrasound Narrative 03/02/2025 2:09 PM EDT Left ventricle cavity size is normal. Left ventricular systolic function is in the normal range with an ejection fraction of 60-65%. No regional LV wall motion abnormalities noted. Left ventricle wall thickness is normal. Except for eccentric upper septal thickening reaching 14 to 15 mm. Right ventricle cavity is normal. Right ventricular systolic function is normal. The Sinus of Valsalva is dilated (4.3 cm). The ascending aorta is dilated (4.0 cm). Sclerotic aortic valve without stenosis. 1-2+ AI. No change from April 22, 2023. Left Ventricle Left ventricle cavity size is normal. Wall thickness is normal. Except for discrete upper septal thickening reaching 14 to 15 mm. Systolic function is normal with an ejection fraction of 60-65%. There are no regional LV wall motion abnormalities. Parameters of diastolic function are indeterminate. Right Ventricle Right ventricle cavity appears normal. Systolic function is normal. Left Atrium Left atrium cavity size is normal. Right Atrium Right atrium cavity is normal. IVC/SVC Inferior vena cava structure is normal. RA pressures is estimated to be 3 mmHg (IVC diameter <21 mm and decreases >50% during inspiration). Mitral Valve The leaflets are mildly thickened. There is mild annular calcification. There is trace regurgitation. There is no significant stenosis noted. Tricuspid Valve Tricuspid valve structure is normal. There is trace regurgitation. Tricuspid regurgitation is inadequate for estimation of right ventricular systolic pressure. There is no significant tricuspid valve stenosis. Aortic Valve The aortic valve is trileaflet. The leaflets are not thickened and exhibit normal excursion. There is mild to moderate regurgitation with a centrally directed jet. There is no evidence of aortic valve stenosis. Pulmonic Valve The pulmonic valve was not well visualized. No significant pulmonic valve regurgitation. No significant pulmonary valve stenosis noted. Ascending Aorta The Sinus of Valsalva is (4.3 cm). The ascending aorta is (4.0 cm). Pericardium Pericardium appears normal. There is no pericardial effusion. Study Details Overall the study quality was adequate. us Mark Anthony Aguilera MD CV ECHO PROCEDURES Final Resul t from Last 3 Months Insurance [employer] Care Teams Shrimp Cleaner Relationship Specialty Start Date End Date Shekhar Rice MD [address] [place] [address] [address] [place], [place] PCP - General 12/11/22
== END 2025-04-01 10:08 | disposition home or self-care (01) ==
LOC: HO.HVS 09:41
PROVIDERS: PCP Internal Medicine; Visit Provider Surgery Vascular Surgery
DX: I73.9 Peripheral vascular disease, unspecified (principal)
CPT/HCPCS: 99214; G2211

== ENCOUNTER → 2025-04-01 09:40 | Outpatient (BNVA) | payer MEDICARE, SELFPAY | PROVIDERS: PCP Internal Medicine; Visit Provider Surgery Vascular Surgery | DX: I73.9 Peripheral vascular disease, unspecified (principal); E78.5 Hyperlipidemia, unspecified | CPT/HCPCS: 99212 ==